=== PATIENT | female | born 1945 | race Caucasian/White ===

== ENCOUNTER → 2016-11-26 | Outpatient (CLI) | payer BC, OTHER ==
--- NOTE | 2016-11-26 09:41 | REPMRS ---
Patient History The patient states she had a clinical breast exam in 07/2016. Patient is postmenopausal. Family history of breast cancer in sister at age 57 and breast cancer in mother at age 50 or over. Digital Woman Screen Mammo: November 26, 2016 - Exam #: [id number] Bilateral CC and MLO view(s) were taken. Technologist: Sol Link Technologist Prior study comparison: July 23, 2014, digital woman screen mammo performed at [facility] to [facility]. November 14, 2010, bilateral digital mammo screening bilat performed at [facility] to [facility]. FINDINGS: There are scattered fibroglandular densities. There has been no change in the appearance of the mammogram from the prior studies. There is a mild amount of scattered fibroglandular density which is fairly symmetric. There is no interval development of dominant mass, architectural distortion, or clustered microcalcification suggestive of malignancy. ASSESSMENT: BI-RADS/ACR category 1 mammogram. Negative. Recommendation Routine screening mammogram in 1 year (for women over age 40). This mammogram was interpreted with the aid of an FDA-approved computer-aided dectection system. Electronically Signed By: Isiah Mercer MD 11/26/16 0940
--- NOTE | 2016-11-27 08:56 | DEXA ---
AP SPINE L1 - L4 1.200 0.0 1.7 LT FEMUR TOTAL 0.994 -0.1 1.4 RT FEMUR TOTAL 1.023 0.1 1.6 TOTAL BODY TOTAL OTHER DUAL FEMUR FRAX* ASSESSMENT Risk factors: 10 year probability of fracture Major osteoporotic fracture % Hip fracture % COMMENTS: Normal bone densitometry of the spine. There is low bone density of the hips. The density of the spine has increased 4.3% since the initial exam on 2004. The spine density has decreased 0.8% since the most recent exam on 07/23/2014. The density of the left hip has decreased 5.2% since the initial exam on 2004. The density of the left hip has decreased 2.4% since the most recent exam on 01/2015. The density of the right hip has increased 3.4% since the initial exam on 2004. The density of the right hip has decreased 0.3% since the most recent exam on . FOLLOW-UP: Recommendation for the next bone density exam: 2 years. NESTOR
== END ==
LOC: M WHC 08:49
PROVIDERS: ATTEND Internal Medicine
DX: Z12.31 Encounter for screening mammogram for malignant neoplasm of breast (principal); M85.80 Other specified disorders of bone density and structure, unspecified site
CPT/HCPCS: 77080; G0202

== ENCOUNTER 2019-03-24 07:50 | Day surgery (SDC) | payer BC, OTHER ==
[~2019-03-24] VITALS: Ht 160 cm; Wt 98.0 kg
[~2019-03-24 07:50] MED LIST: LEVO25TA5 PO; MOTR200T44 PO; NS 1,000 ML IV ONE
[2019-03-24] MEDS ORDERED: VITA100066 PO (08:49)
[2019-03-24] MEDS ORDERED: propofoL 200 MG/20 ML VIAL As Ordered ONE (09:23)
[2019-03-24] MEDS ORDERED: LIDOCAINE 2% INJ 100 MG/5 ML SDV (FOR ANES.) As Ordered ONE (09:23)
--- NOTE | 2019-03-24 09:53 | ROOR ---
Patient Name: Patricia Ortega Procedure Date: 03/24/2019 9:33 AM Date of : 1945 Age: 73 Room: [facility] Gender: Female Note Status: Finalized Procedure: Total Colonoscopy to Cecum Indications: High risk colon cancer surveillance: Personal history of colonic polyps, Last colonoscopy: 2014 Providers: Tej Reynolds MD Referring MD: TONJA CRUMP JR, MD Requesting Provider: Medicines: Monitored Anesthesia Care Complications: No immediate complications. Procedure: Pre-Anesthesia Assessment: - The heart rate, respiratory rate, oxygen saturations, blood pressure, adequacy of pulmonary ventilation, and response to care were monitored throughout the procedure. The Colonoscope was introduced through the anus and advanced to the cecum, identified by appendiceal orifice and ileocecal valve. The colonoscopy was performed without difficulty. The patient tolerated the procedure well. The quality of the bowel preparation was excellent. Findings: The perianal and digital rectal examinations were normal. Non-bleeding internal hemorrhoids were found during retroflexion. The hemorrhoids were small and Grade I (internal hemorrhoids that do not prolapse). Multiple small and large-mouthed diverticula were found in the recto-sigmoid colon, sigmoid colon and descending colon. The exam was otherwise without abnormality on direct and retroflexion views. Impression: - Non-bleeding internal hemorrhoids. - Diverticulosis in the recto-sigmoid colon, in the sigmoid colon and in the descending colon. - The examination was otherwise normal on direct and retroflexion views. - No specimens collected. - The exam was otherwise normal to the cecum. Recommendation: - Patient has a contact number available for emergencies. The signs and symptoms of potential delayed complications were discussed with the patient. Return to normal activities tomorrow. Written discharge instructions were provided to the patient. - High fiber diet. - Discharge patient to home. - Continue present medications. - Repeat colonoscopy for symptoms only. - Return to referring physician. - The findings and recommendations were discussed with the patient's family. Tej Reynolds MD Tej Reynolds MD 03/24/2019 9:53:27 AM Electronically signed by Tej Reynolds MD Number of Addenda: 0 Note Initiated On: 03/24/2019 9:33 AM Estimated Blood Loss: Estimated blood loss: none.
[2019-03-24 10:10] VITALS: BP 129/80
== END 2019-03-24 10:21 | disposition home or self-care (01) ==
LOC: M OPP 07:50
PROVIDERS: ATTEND Internal Medicine Gastroenterology
DX: Z12.11 Encounter for screening for malignant neoplasm of colon (principal); Z86.010 Personal history of colon polyps; K64.0 First degree hemorrhoids; K57.30 Diverticulosis of large intestine without perforation or abscess without bleeding; Z79.899 Other long term (current) drug therapy

== ENCOUNTER → 2020-05-06 | Outpatient (CLI) | payer BC, OTHER ==
[~2020-05-06] MED LIST changes: -NS 1,000 ML IV ONE; +VITA100066 PO
--- NOTE | 2020-05-06 11:17 | REPMRS ---
Patient History The patient states she has not had a clinical breast exam in over a year. Family history of breast cancer at age 50 or over in mother, breast cancer at age 57 in sister. Digital Woman Screen Mammo: May 06, 2020 - Exam #: [id number] Bilateral CC and MLO view(s) were taken. Technologist: Teri Amezcua, Technologist Prior study comparison: November 26, 2016, digital woman screen mammo performed at [facility]. July 23, 2014, digital woman screen mammo performed at [facility]. November 14, 2010, bilateral digital mammo screening bilat performed at [facility]. FINDINGS: There are scattered fibroglandular densities. The Volpara volumetric breast density category is:B. There has been no change in the appearance of the mammogram from the prior studies. There is a mild amount of scattered fibroglandular density which is fairly symmetric. There is no interval development of dominant mass, architectural distortion, or grouped microcalcification suggestive of malignancy. 3-D tomosynthesis shows no additional findings. Assessment: BI-RADS/ACR category 1 mammogram. Negative Mammogram. Recommendation Routine screening mammogram of both breasts in 1 year (for women over age 40). This patient's [facility] Lifetime Breast Cancer Risk is estimated at 11.2 %. This mammogram was interpreted with the aid of an FDA-approved computer-aided dectection system. Electronically Signed By: Isiah Mercer MD 05/06/20 0310
== END ==
LOC: M WHC 09:07
PROVIDERS: ATTEND Internal Medicine
DX: Z12.31 Encounter for screening mammogram for malignant neoplasm of breast (principal); Z80.3 Family history of malignant neoplasm of breast

== ENCOUNTER → 2021-05-13 | Outpatient (REF) | payer BC, OTHER ==
[2021-05-13 18:10] LABS: PERCENT SATURATION 35.8 % (13.2-45.0)
== END ==
LOC: M LAB REF 16:12
PROVIDERS: ATTEND Internal Medicine
DX: E83.119 Hemochromatosis, unspecified (principal)

== ENCOUNTER → 2021-07-24 | Outpatient (CLI) | payer MEDICARE, BC, OTHER | LOC: M WHC 09:00 | PROVIDERS: ATTEND Internal Medicine | DX: Z12.31 Encounter for screening mammogram for malignant neoplasm of breast (principal); M81.0 Age-related osteoporosis without current pathological fracture; Z78.0 Asymptomatic menopausal state; Z80.3 Family history of malignant neoplasm of breast; M85.851 Other specified disorders of bone density and structure, right thigh; M85.852 Other specified disorders of bone density and structure, left thigh ==

== ENCOUNTER → 2022-08-21 | Outpatient (REF) | payer MEDICARE, BC, OTHER ==
[2022-08-21 18:01] LABS: PERCENT SATURATION 27.4 % (13.2-45.0)
[2022-08-21 18:04] LABS: FERRITIN 126.6 NG/ML (7.3-270.7)
== END ==
LOC: M LAB REF 16:05
PROVIDERS: ATTEND Internal Medicine
DX: Z83.2 Family history of diseases of the blood and blood-forming organs and certain disorders involving the immune mechanism (principal)

== ENCOUNTER → 2023-01-22 | Outpatient (CLI) | payer MEDICARE, BC, OTHER | LOC: M WHC 10:15 | PROVIDERS: ATTEND Internal Medicine | DX: Z12.31 Encounter for screening mammogram for malignant neoplasm of breast (principal) ==

== ENCOUNTER → 2023-02-22 | Outpatient (REF) | payer MEDICARE, BC, OTHER ==
[2023-02-22 17:15] LABS: PERCENT SATURATION 30.8 % (13.2-45.0)
== END ==
LOC: M LAB REF 16:23
PROVIDERS: ATTEND Internal Medicine
DX: Z83.2 Family history of diseases of the blood and blood-forming organs and certain disorders involving the immune mechanism (principal)

== ENCOUNTER → 2023-08-31 | Outpatient (REF) | payer MEDICARE, BC, OTHER ==
[2023-08-31 19:38] LABS: PERCENT SATURATION 46.5 % (13.2-45.0)
[2023-08-31 19:40] LABS: FERRITIN 171.1 NG/ML (7.3-270.7)
== END ==
LOC: M LAB REF 17:39
PROVIDERS: ATTEND Internal Medicine
DX: E83.110 Hereditary hemochromatosis (principal)